=== PATIENT | male | born 1945 | race Caucasian/White ===

== ENCOUNTER → 2017-07-04 11:49 | Outpatient (CLI) | payer MEDICARE, SELFPAY ==
[2017-07-04 12:58] LABS: AST(SGOT) 25 U/L (15-37); Alanine Aminotransfer ALT/SGPT 23 U/L (16-61); Albumin, Serum 3.9 g/dL (3.2-5.0); Alkaline Phosphatase 89 U/L (45-117); Bilirubin, Direct 0.22 mg/dL (0.00-0.30); Cholesterol 135 mg/dL (200); Globulin 3.7 g/dL (2.2-4.2); High Density Lipoprotein 59 mg/dL; Protein, Total 7.6 g/dL (6.4-8.2); Triglycerides 69 mg/dL; Very Low Density Lipoprotein 14 mg/dL (5-40)
== END ==
PROVIDERS: Family Provider Family Medicine; PCP Family Medicine; Visit Provider Internal Medicine Cardiovascular Disease
DX: E78.5 Hyperlipidemia, unspecified (principal); Z79.899 Other long term (current) drug therapy
CPT/HCPCS: 36415; 80061; 80076

== ENCOUNTER → 2018-04-16 15:12 | Outpatient (CLI) | payer MEDICARE, SELFPAY ==
[2018-04-16 13:50] VITALS: BMI 33.8
[2018-04-16 16:24] LABS: Absolute Lymphocyte Count 1.36 X10^3/ul (0.83-4.51); Absolute Neutrophil Count 3.9 X10^3/uL (2.0-7.7); Basophil# 0.01 X10^3/uL; Basophil% 0.2 % (0-1); Eosinophil# 0.07 X10^3/uL; Eosinophils% 1.2 % (0-5); Hematocrit 43.9 % (40-54); Hemoglobin 14.6 g/dl (13.0-16.5); Lymphocyte # 1.36 X10^3/ul (4.0); Lymphocyte % 23.5 % (19-41); Mean Corp Hgb Conc 33.3 g/gl (32-36); Mean Corpuscular Hgb 30.7 pg (27.0-32.0); Mean Corpuscular Volume 92.2 fL (80-94); Mean Platelet Vol. 10.5 fl (6.2-12.0); Monocyte# 0.43 X10^3/uL; Monocyte% 7.4 % (0-10); Neutrophil # 3.91 X10^3/uL (2.7-7.7); Neutrophil % 67.5 % (47-70); Platelet Count 145 K/mm3 (150-450); RBC Distribution Width CV 13.2 % (11.6-14.6); RBC Distribution Width SD 43.6 fl (35.1-43.9); Red Blood Count 4.76 M/mm3 (4.6-6.2); White Blood Count 5.8 K/mm3 (4.4-11.0)
[2018-04-16 16:30] LABS: POSITIVE COUNT NO; POSITIVE DIFFERENTIAL NO; POSITIVE MORPHOLOGY NO
[2018-04-16 16:54] LABS: Anion Gap 10 (5-15); BUN 21 mg/dL (7-18); BUN/Creat Ratio 17.5 RATIO (10-20); Calcium,Total 9.2 mg/dL (8.5-10.1); Chloride 110 mmol/L (98-107); EST Glomerular Filtration Rate 64 mL/min (>60); Est Glom Filt Rate - Afr Amer 77 mL/min (>60); Glucose 109 mg/dL (74-106); Magnesium 2.2 mg/dL (1.6-2.6); Sodium Level 146 mmol/L (136-145); Thyroid Stim Hormone (TSH) 1.77 uIU/mL (0.358-3.74)
== END ==
PROVIDERS: Family Provider Family Medicine; PCP Family Medicine; Referring Provider Physician Assistant Medical; Visit Provider Physician Assistant Medical
DX: I25.10 Atherosclerotic heart disease of native coronary artery without angina pectoris (principal); I42.0 Dilated cardiomyopathy; I10 Essential (primary) hypertension; E78.00 Pure hypercholesterolemia, unspecified; G47.33 Obstructive sleep apnea (adult) (pediatric); I48.91 Unspecified atrial fibrillation
CPT/HCPCS: 36415; 80048; 83735; 84443; 85025

== ENCOUNTER → 2018-04-27 06:10 | Outpatient (CLI) | payer MEDICARE, SELFPAY ==
[2018-04-16 13:50] VITALS: BMI 33.8
--- NOTE | 2018-04-27 06:22 | ECHOD_ITS ---
Reason For Study: Afib, Aflutter Procedure This was a 2D Doppler, Color Flow transthoracic echocardiogram. The exam was of adequate technical quality. Exam performed in department. Left Ventricle Normal LV size. Mild concentric left ventricular hypertrophy. Left ventricular systolic function is normal. The estimated ejection fraction is 60 %. Unable to assess diastolic dysfunction. No regional wall motion abnormalities noted. Right Ventricle Normal RV size. Normal systolic function. Atria The left atrium is moderately enlarged. The right atrium is mildly enlarged. No doppler evidence for ASD. Mitral Valve There is mild mitral annular calcification. Normal mitral valve. Moderate (2+) mitral valve insufficiency. Tricuspid Valve Normal tricuspid valve. Mild tricuspid valve insufficiency. Right ventricular systolic pressure estimated to be 45 mmHg. Aortic Valve Trisinus/trileaflet aortic valve. Mild focal aortic valve thickening. Moderate focal aortic valve calcification. Mild aortic stenosis. Trivial aortic valve insufficiency. Pulmonic Valve The pulmonic valve is not well visualized. Moderate (2+) eccentric pulmonic valve insufficiency. Great Vessels Normal sized aortic root. Pericardium/Pleural No pericardial effusion. MMode/2D Measurements & Calculations LVIDd: 4.5 cm IVSd: 1.5 cm LVOT diam: 2.2 cm LVIDs: 3.1 cm LVPWd: 1.4 cm LVOT area: 3.7 cm2 RVDd: 4.2 cm FS: 30.7 % Ao root diam: 3.9 cm LAV(MOD-bp): 93.0 ml LVAd ap4: 32.0 cm2 LAV(MOD-bp) Indexed: 44.5 ml/m2 EDV(MOD-sp4): 101.4 ml LAV(MOD-sp2): 101.3 ml EDV(sp4-el): 105.8 ml LAV(MOD-sp4): 81.9 ml LVAs ap4: 17.8 cm2 ESV(MOD-sp4): 38.4 ml ESV(sp4-el): 38.4 ml EF(MOD-sp4): 62.1 % EF(sp4-el): 63.7 % SV(MOD-sp4): 63.0 ml SV(sp4-el): 67.4 ml LA A4 area: 27.2 cm2 LA dimension(2D): 5.1 cm RA A4 area: 25.8 cm2 Doppler Measurements & Calculations MV E max helga: 107.2 cm/sec Ao V2 max: 206.8 cm/sec LV V1 max: 93.8 cm/sec Ao max P.1 mmHg LV V1 max P.5 mmHg Ao V2 mean: 142.2 cm/sec LV V1 mean P.0 mmHg Ao mean P.0 mmHg LV V1 mean: 67.4 cm/sec Ao V2 VTI: 44.4 cm LV V1 VTI: 20.7 cm KENNA(I,D): 1.7 cm2 KENNA(V,D): 1.7 cm2 SV(LVOT): 77.1 ml PA V2 max: 74.9 cm/sec PI end-d helga: 153.0 cm/sec TR max helga: 324.1 cm/sec TR max P.0 mmHg Interpretation Summary Left ventricular systolic function is normal. The estimated ejection fraction is 60 %. Mild concentric left ventricular hypertrophy. The left atrium is moderately enlarged. The right atrium is mildly enlarged. There is mild mitral annular calcification. Moderate (2+) mitral valve insufficiency. Mild tricuspid valve insufficiency. Mild aortic stenosis. Trivial aortic valve insufficiency. Moderate (2+) eccentric pulmonic valve insufficiency. Right ventricular systolic pressure estimated to be 45 mmHg. Unable to assess diastolic dysfunction. Ordering Physician: Katelin Otero Referring Physician: Raul Lr Performed By: Cleopatra Bush RDCS, RVT
--- NOTE | 2018-04-27 18:38 | STRESSREP ---
Stress Test Report Date: 04-27-2018 Procedure: Pharmacologic stress nuclear imaging study Indications: Atrial fibrillation; cardiomyopathy; valvular heart disease Consent: Per the patient Procedure: The patient underwent pharmacologic (Regadenoson) evaluation with a peak heart rate of 94 beats per minute (62% predicted maximal heart rate) and a peak blood pressure of 144/98 mmHg. The baseline ECG demonstrated atrial fibrillation; nonspecific ST segment abnormalities . The peak pharmacologic ECG demonstrated no obvious ECG changes . There were no cardiac dysrhythmias pretest, during pharmacologic infusion, or recovery. There was no complaint of chest discomfort during pharmacologic infusion or recovery. The examination was discontinued secondary to completion of protocol. Impression: 1. Pharmacologic (Regadenoson) evaluation 2. Peak pharmacologic ECG with . 3. There were no cardiac dysrhythmias pretest, during pharmacologic infusion, or recovery. 4. Nuclear images pending Myocardial perfusion imaging study: Technique: The patient was injected with 14.1 millicuries of technetium 99m Cardiolite and subsequently rest SPECT Cardiolite nuclear imaging was obtained in the horizontal long, vertical long, and short axis views. The patient underwent pharmacologic (Regadenoson) evaluation with a peak heart rate of 94 beats per minute (62 % percent predicted maximal heart rate) and a peak blood pressure of 144/98 mmHg. The patient was injected with 40.6 millicuries of technetium 99m Cardiolite and subsequently stress SPECT Cardiolite nuclear imaging was obtained in the horizontal long, vertical long, and short axis views. A gated Cardiolite study at peak stress was obtained. Interpretation: Rest and stress SPECT Cardiolite nuclear imaging status post realignment, normalization, and attenuation correction demonstrate a small area of subtle diminished tracer uptake near the apical segments without significant change between rest and stress appearing compatible with physiologic apical thinning with no myocardial perfusion changes considered diagnostic for associated stress induced myocardial ischemia or previous myocardial injury/infarction . The gated Cardiolite study demonstrates myocardial thickening and inward wall motion. The reported LVEF is 64 %. Impression: 1. Rest and stress SPECT Cardiolite nuclear imaging demonstrate myocardial perfusion changes compatible with physiologic apical thinning with no myocardial perfusion changes considered diagnostic for associated stress induced myocardial ischemia or previous myocardial injury/infarction. . 2. The gated Cardiolite study reports an LVEF of 64 %. This note was generated with [employer] software. It may contain incorrect words, spelling, and punctuation that were not noted in checking the note before signing.
--- NOTE | 2018-04-27 18:43 | STRESSREP_ITS ---
Stress Test Report Date: 04-27-2018 Procedure: Pharmacologic stress nuclear imaging study Indications: Atrial fibrillation; cardiomyopathy; valvular heart disease Consent: Per the patient Procedure: The patient underwent pharmacologic (Regadenoson) evaluation with a peak heart rate of 94 beats per minute (62% predicted maximal heart rate) and a peak bloo d pressure of 144/98 mmHg. The baseline ECG demonstrated atrial fibrillation; nonspecific ST segment abnormalities . The peak pharmacologic ECG demonstrated no obvious ECG changes . There were no cardiac dysrhythmias pretest, during pharmacologic infusion, or recovery. There was no complaint of chest discomfort during pharmacologic infusion or recovery. The examination was discontinued secondary to completion of protocol. Impression: 1. Pharmacologic (Regadenoson) evaluation 2. Peak pharmacologic ECG with . 3. There were no cardiac dysrhythmias pretest, during pharmacologic infusion, or recovery. 4. Nuclear images pending Myocardial perfusion imaging study: Technique: The patient was injected with 14.1 millicuries of technetium 99m Cardiolite and subsequently rest SPECT Cardiolite nuclear imaging was obtained in the horizontal long, vertical long, and short axis views. The patient underwent pharmacologic (Regadenoson) evaluation with a peak heart rate of 94 beats per m inute (62 % percent predicted maximal heart rate) and a peak blood pressure of 144/98 mmHg. The patient was injected with 40.6 millicuries of technetium 99m Cardiolite and subsequently stress SPECT Cardiolite nuclear imaging was obtained in the horizontal long, vertical long, and short axis views. A gated Cardiolite study at peak stress was obtained. Interpretation: Rest and stress SPECT Cardiolite nuclear imaging status post realignment, normalization, and attenuation correction demonstrate a small area of subtle diminished tracer uptake near the apical segments without significant change between rest and stress appearing compatible with physiologic apical thinning with no myocardial perfusion changes considered diagnostic for associated stress induced myocardial ischemia or previous myocardial injury/infarction . The gated Cardiolite study demonstrates myocardial thickening and inward wall motion. The reported LVEF is 64 %. Impression: 1. Rest and stress SPECT Cardiolite nuclear imaging demonstrate myocardial perfusion changes compatible with physiologic apical thinning with no myocardial perfusion changes considered diagnostic for associated stress induced myocardial ischemia or previous myocardial injury/infarction. . 2. The gated Cardiolite study reports an LVEF of 64 %. This note was generated with [employer] software. It may contain incorrect words, spelling, and punctuation that were not noted in checking the note before signing.
== END ==
PROVIDERS: Family Provider Family Medicine; PCP Family Medicine; Referring Provider Physician Assistant Medical; Visit Provider Physician Assistant Medical
DX: I25.10 Atherosclerotic heart disease of native coronary artery without angina pectoris (principal); I48.91 Unspecified atrial fibrillation; I42.0 Dilated cardiomyopathy; I27.20 Pulmonary hypertension, unspecified; E78.5 Hyperlipidemia, unspecified; E78.00 Pure hypercholesterolemia, unspecified; G47.33 Obstructive sleep apnea (adult) (pediatric); I10 Essential (primary) hypertension
CPT/HCPCS: 78452; 93017; 93225; 93226; 93306; A9500; A4216; J2785

== ENCOUNTER 2018-05-29 10:21 | Day surgery (SDC) | payer MEDICARE, SELFPAY ==
[2018-05-01 13:36] VITALS: BMI 33.2
[2018-05-17 14:57] VITALS: BMI 33.3
--- NOTE | 2018-05-17 16:07 | RAD_ITS ---
STUDY: X-RAY CHEST REASON FOR EXAM: Male, 72 years old. Atrial fibrillation. TECHNIQUE: PA and lateral views of the chest. COMPARISON: Frontal chest x-ray included with acute abdomen series December 24, 2013. FINDINGS: The lungs are clear and expanded. There is no demonstrated pleural abnormality. Normal size heart. Normal mediastinum and janae. Normal visualized pulmonary arteries. There is mild atherosclerotic calcification of the aortic arch. There are stable diffuse degenerative changes of the visualized thoracic spine. Normal visualized ribs, clavicles, and shoulders. There is no demonstrated abnormality of the visualized soft tissue structures of the upper abdomen. RAD/Chest PA and Lateral IMPRESSION: No acute cardiopulmonary disease. Electronically Signed: Arnie Su MD at 17:44 EDT , Service support ,
[2018-05-17 17:37] LABS: Anion Gap 6 (5-15); BUN 18 mg/dL (7-18); BUN/Creat Ratio 15.1 RATIO (10-20); Chloride 110 mmol/L (98-107); Creatinine, Serum 1.19 mg/dL (0.70-1.30); EST Glomerular Filtration Rate 64 mL/min (>60); Est Glom Filt Rate - Afr Amer 78 mL/min (>60); Glucose 85 mg/dL (74-106); Sodium Level 146 mmol/L (136-145)
[2018-05-28 09:35] VITALS: BMI 33.3
--- NOTE | 2018-05-29 12:57 | OP.PCM_ITS ---
Problem List (1) Atrial fibrillation Status: Chronic Qualifiers: Atrial fibrillation type: persistent Report of Operation Date of Procedure: 05/29/18 Pre-Operative Diagnosis: Atrial fibrillation Post-Operative Diagnosis: Atrial fibrillation Surgery/Procedure Performed:: Synchronized biphasic DC cardioversion Description of Surgical Findings:: Synchronized biphasic DC cardioversion: 200 J x1: Result: Atrial fibrillation Synchronized biphasic DC cardioversion: 300 J x1: Result: Sinus rhythm Type of Anesthesia:: IV Sedation Anesthesiologist: Saulo Limon Special Medications: Propofol 80 mg IV push total Specimen's removed: None Description of Procedure: Synchronized biphasic DC cardioversion: 200 J x1: Result: Atrial fibrillation Synchronized biphasic DC cardioversion: 300 J x1: Result: Sinus rhythm - Complications None - Admit VTE Documentation VTE Present on Admission: No VTE Mechan Device Prophylaxis: None - The patient is on oral systemic anticoagulant therapy VTE Pharm Prophylaxis ordered?: No Reason prophylaxis not ordered:: Treatment Not Indicated - The patient is on o ral systemic anticoagulant therapy
--- NOTE | 2018-05-29 15:15 | PCM.OP.PRO ---
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 transplanted heart: [place] heart Qualified Code(s): I25.10 - Atherosclerotic heart disease of [place] coronary artery without angina pectoris (2) Atrial fibrillation Status: Chronic Qualifiers: Atrial fibrillation type: persistent (3) Cardiomyopathy Status: Chronic Qualifiers: Cardiomyopathy type: dilated Qualified Code(s): I42.0 - Dilated cardiomyopathy (4) Morbid obesity Status: Chronic (5) Nonrheumatic aortic (valve) stenosis Status: Chronic (6) Nonrheumatic mitral valve regurgitation Status: Chronic (7) GOLDY (obstructive sleep apnea) Status: Chronic (8) Pulmonary hypertension Status: Chronic Procedure Report Date of Procedure: 05/29/18 - Conscious sedation CONSCIOUS SEDATION REPORT BRIEF HISTORY OF PRESENT ILLNESS: The patient is a 72-year-old male who presented to [facility] for an elective outpatient cardioversion due to underlying atrial fibrillation. The patient reports no PO intake since midnight. The patient does have a history of obstructive sleep apnea. The patient reports no history of smoking and COPD. The patient denies any recent constitutional symptoms such as fevers, chills, nausea or vomiting. The patient denies previous anesthetic complications. Patient's last known ejection fraction was 55% and patient is anticoagulated with Eliquis. PHYSICAL EXAMINATION: VITAL SIGNS: Reviewed and were acceptable. GENERAL: The patient is a male, in no apparent distress, speaking in full sentences. HEENT: Normocephalic, atraumatic. Mucous membranes are moist and pink. Good mouth opening noted. Fair dentition. Trachea is midline. Good neck mobility. MP III CHEST: S1, S2 irregularly irregular. No murmurs, rubs or gallops were noted. LUNGS: Clear to auscultation bilaterally without appreciable wheezes, rales or rhonchi. ABDOMEN: Soft, nontender, nondistended. Positive bowel sounds. EXTREMITIES: There is no clubbing, cyanosis or edema. ASA Class: II DESCRIPTION OF PROCEDURE: After confirmation of informed consent, the patient's anesthesia plan was reviewed in detail. Propofol was chosen. Risks and benefits were reviewed and the patient agreed to proceed. At 12:17 PM, the patient was given 40 mg of propofol. The patient required a total of 60 mg of propofol throughout the procedure to achieve appropriate sedation. The patient achieved an appropriate level of sedation and received 2 attempt s synchronized cardioversion, at 200 J and [address] Timmons at the bedside. This was successful in achieving normal sinus rhythm. The patient was monitored until 12:28 PM, at which time the patient reached their baseline mental status and function. The patient tolerated the procedure well. COMPLICATIONS: None ESTIMATED BLOOD LOSS: None RECOMMENDATIONS: Okay to recover in usual fashion. Code Visit 9xxxx: Other Procedure See Report - [id number] - 11 min
--- NOTE | 2018-05-29 15:18 | PRO.PCM_ITS ---
Problem List (1) Atherosclerotic heart disease of [place] coronary artery without angina pectoris Status: Chronic Qualifiers: [place] vs. transplanted heart: [place] heart Qualified Code(s): I25.10 - Atherosclerotic heart disease of [place] coronary artery without angina pectoris (2) Atrial fibrillation Status: Chronic Qualifiers: Atrial fibrillation type: persistent (3) Cardiomyopathy Status: Chronic Qualifiers: Cardiomyopathy type: dilated Qualified Code(s): I42.0 - Dilated cardiomyopathy (4) Morbid obesity Status: Chronic (5) Nonrheumatic aortic (valve) stenosis Status: Chronic (6) Nonrheumatic mitral valve regurgitation Status: Chronic (7) GOLDY (obstructive sleep apnea) Status: Chronic (8) Pulmonary hypertension Status: Chronic Procedure Report Date of Procedure: 05/29/18 - Conscious sedation CONSCIOUS SEDATION REPORT BRIEF HISTORY OF PRESENT ILLNESS: The patient is a 72-year-old male who presented to [facility] for an elective outpatient cardioversion due to underlying atrial fibrillation. The patient reports no PO intake since midnight. The patient does have a history of obstructive sleep apnea. The patient reports no history of smoking and COPD. The patient denies any recent constitutional symptoms such as fevers, chills, nausea or vomiting. The patient denies previous anesthetic complications. Patient's last known ejection fraction was 55% and patient is anticoagulated with Eliquis. PHYSICAL EXAMINATION: VITAL SIGNS: Reviewed and were acceptable. GENERAL: The patient is a male, in no apparent distress, speaking in full sentences. HEENT: Normocephalic, atraumatic. Mucous membranes are moist and pink. Good mouth opening noted. Fair dentition. Trachea is midline. Good neck mobility. MP III CHEST: S1, S2 irregularly irregular. No murmurs, rubs or gallops were noted. LUNGS: Clear to auscultation bilaterally without appreciable wheezes, rales or rhonchi. ABDOMEN: Soft, nontender, nondistended. Positive bowel sounds. EXTREMITIES: There is no clubbing, cyanosis or edema. ASA Class: II DESCRIPTION OF PROCEDURE: After confirmation of informed consent, the patient's anesthesia plan was reviewed in detail. Propofol was chosen. Risks and benefits were reviewed and the patient agreed to proceed. At 12:17 PM, the patient was given 40 mg of propofol. The patient required a total of 60 mg of propofol throughout the procedure to achieve appropriate sedation. The patient achieved an appropriate level of sedation and received 2 attempt s synchronized cardioversion, at 200 J and [address] Timmons at the bedside. This was successful in achieving normal sinus rhythm. The patient was monitored until 12:28 PM, at which time the patient reached their baseline mental status and function. The patient tolerated the procedure well. COMPLICATIONS: None ESTIMATED BLOOD LOSS: None RECOMMENDATIONS: Okay to recover in usual fashion. Code Visit 9xxxx: Other Procedure See Report - [id number] - 11 min
== END 2018-05-29 13:38 | disposition home or self-care (01) ==
LOC: CLSP 10:22
PROVIDERS: Physician Assistant Medical; Family Provider Family Medicine; PCP Family Medicine; Referring Provider Internal Medicine Cardiovascular Disease; Visit Provider Internal Medicine Cardiovascular Disease
DX: I48.1 Persistent atrial fibrillation (principal); Z79.01 Long term (current) use of anticoagulants; I25.10 Atherosclerotic heart disease of native coronary artery without angina pectoris; I42.0 Dilated cardiomyopathy; E66.01 Morbid (severe) obesity due to excess calories; E78.5 Hyperlipidemia, unspecified; I35.0 Nonrheumatic aortic (valve) stenosis; I34.0 Nonrheumatic mitral (valve) insufficiency; G47.33 Obstructive sleep apnea (adult) (pediatric); M10.9 Gout, unspecified; I27.20 Pulmonary hypertension, unspecified; Z68.33 Body mass index [BMI] 33.0-33.9, adult; Z79.82 Long term (current) use of aspirin; Z87.891 Personal history of nicotine dependence
CPT/HCPCS: 36415; 71046; 80048; 92960; 93005; J7040

== ENCOUNTER → 2018-11-23 07:37 | Outpatient (CLI) | payer MEDICARE, SELFPAY ==
[2018-05-28 09:35] VITALS: BMI 33.3
== END ==
PROVIDERS: Family Provider Family Medicine; PCP Family Medicine; Referring Provider Family Medicine; Visit Provider Family Medicine
DX: I25.10 Atherosclerotic heart disease of native coronary artery without angina pectoris (principal); I10 Essential (primary) hypertension; M10.9 Gout, unspecified; Z12.5 Encounter for screening for malignant neoplasm of prostate
CPT/HCPCS: 36415; 80053; 80061; 84153; 84550; 85025; G0103

== ENCOUNTER → 2018-11-23 07:47 | Outpatient (CLI) | payer MEDICARE, SELFPAY ==
[2018-05-28 09:35] VITALS: BMI 33.3
[2018-11-23 13:14] LABS: Absolute Lymphocyte Count 1.38 X10^3/uL (0.83-4.51); Absolute Neutrophil Count 3.2 X10^3/uL (2.0-7.7); Basophil# 0.01 X10^3/uL; Basophil% 0.2 % (0-1); Eosinophil# 0.16 X10^3/uL; Eosinophils% 3.1 % (0-5); Hematocrit 36.4 % (40-54); Hemoglobin 11.8 g/dL (13.0-16.5); Lymphocyte # 1.38 X10^3/ul (4.0); Lymphocyte % 26.9 % (19-41); Mean Corp Hgb Conc 32.4 g/dL (32-36); Mean Corpuscular Hgb 30.9 pg (27.0-32.0); Mean Corpuscular Volume 95.3 fL (80-94); Mean Platelet Vol. 10.5 fl (6.2-12.0); Monocyte% 7.8 % (0-10); NRBC Flagged by Analyzer 0 % (0-5); Neutrophil # 3.17 X10^3/uL (2.7-7.7); Neutrophil % 61.8 % (47-70); Platelet Count 134 K/mm3 (150-450); RBC Distribution Width CV 13.3 % (11.6-14.6); RBC Distribution Width SD 46.5 fl (35.1-43.9); Red Blood Count 3.82 M/mm3 (4.6-6.2); White Blood Count 5.1 K/mm3 (4.4-11.0)
[2018-11-23 13:44] LABS: AST(SGOT) 30 U/L (15-37); Alanine Aminotransfer ALT/SGPT 26 U/L (16-61); Albumin, Serum 3.8 g/dL (3.2-5.0); Alkaline Phosphatase 74 U/L (45-117); Anion Gap 10 (5-15); BUN 25 mg/dL (7-18); BUN/Creat Ratio 21.4 RATIO (10-20); Calcium,Total 8.8 mg/dL (8.5-10.1); Chloride 108 mmol/L (98-107); Cholesterol 146 mg/dL (200); Creatinine, Serum 1.17 mg/dL (0.70-1.30); EST Glomerular Filtration Rate 65 mL/min (>60); Est Glom Filt Rate - Afr Amer 79 mL/min (>60); Globulin 3.8 g/dL (2.2-4.2); Glucose 88 mg/dL (74-106); High Density Lipoprotein 67 mg/dL; PSA,Total - Annual Screen 2.67 ng/mL (0.00-4.00); Potassium 3.8 mmol/L (3.5-5.1); Protein, Total 7.6 g/dL (6.4-8.2); Sodium Level 145 mmol/L (136-145); Triglycerides 61 mg/dL; Very Low Density Lipoprotein 12 mg/dL (5-40)
[2018-12-04 13:55] VITALS: BMI 32.4
== END ==
PROVIDERS: Family Provider Family Medicine; PCP Family Medicine; Referring Provider Family Medicine; Visit Provider Family Medicine
DX: I25.10 Atherosclerotic heart disease of native coronary artery without angina pectoris (principal); I10 Essential (primary) hypertension; M10.9 Gout, unspecified; Z12.5 Encounter for screening for malignant neoplasm of prostate
CPT/HCPCS: 36415; 80053; 80061; 84153; 84550; 85025; G0103

== ENCOUNTER → 2019-02-01 11:22 | Outpatient (CLI) | payer MEDICARE, SELFPAY ==
[2018-05-28 09:35] VITALS: BMI 33.3
[2018-12-04 13:55] VITALS: BMI 32.4
[2019-02-01 11:46] LABS: Absolute Neutrophil Count 2.9 X10^3/uL (2.0-7.7); Basophil# 0.03 X10^3/uL; Basophil% 0.6 % (0-1); Eosinophil# 0.13 X10^3/uL; Eosinophils% 2.7 % (0-5); Hematocrit 39.3 % (40-54); Lymphocyte % 28.7 % (19-41); Mean Corp Hgb Conc 33.1 g/dL (32-36); Mean Corpuscular Hgb 31.5 pg (27.0-32.0); Mean Corpuscular Volume 95.2 fL (80-94); Mean Platelet Vol. 9.8 fl (6.2-12.0); Monocyte# 0.39 X10^3/uL; NRBC Flagged by Analyzer 0 % (0-5); Neutrophil # 2.91 X10^3/uL (2.7-7.7); Neutrophil % 59.8 % (47-70); Platelet Count 129 K/mm3 (150-450); RBC Distribution Width CV 12.8 % (11.6-14.6); RBC Distribution Width SD 44.7 fl (35.1-43.9); Red Blood Count 4.13 M/mm3 (4.6-6.2); White Blood Count 4.9 K/mm3 (4.4-11.0)
[2019-02-01 12:52] LABS: Ferritin 40 ng/mL (26-388); Iron 73 ug/dL (65-175)
[2019-02-01 13:58] LABS: Vitamin B12 696 pg/mL (211-911)
== END ==
PROVIDERS: Family Provider Family Medicine; PCP Family Medicine; Referring Provider Family Medicine; Visit Provider Family Medicine
DX: D53.9 Nutritional anemia, unspecified (principal)
CPT/HCPCS: 36415; 82607; 82728; 82746; 83540; 85025

== ENCOUNTER → 2019-10-24 13:40 | Outpatient (CLI) | payer MEDICARE, SELFPAY ==
[2019-10-03 11:35] VITALS: BMI 33.8
[2019-10-24 15:03] LABS: AST(SGOT) 24 U/L (15-37); Alanine Aminotransfer ALT/SGPT 25 U/L (16-61); Albumin, Serum 3.9 g/dL (3.2-5.0); Alkaline Phosphatase 80 U/L (45-117); Bilirubin, Direct 0.19 mg/dL (0.00-0.30); Cholesterol 147 mg/dL (200); Globulin 3.6 g/dL (2.2-4.2); High Density Lipoprotein 63 mg/dL; Protein, Total 7.5 g/dL (6.4-8.2); Triglycerides 62 mg/dL; Very Low Density Lipoprotein 12 mg/dL (5-40)
== END ==
PROVIDERS: PCP Family Medicine; Referring Provider Internal Medicine Cardiovascular Disease; Visit Provider Internal Medicine Cardiovascular Disease
DX: E78.00 Pure hypercholesterolemia, unspecified (principal); I25.10 Atherosclerotic heart disease of native coronary artery without angina pectoris; I27.20 Pulmonary hypertension, unspecified; I48.0 Paroxysmal atrial fibrillation; I34.0 Nonrheumatic mitral (valve) insufficiency; I35.0 Nonrheumatic aortic (valve) stenosis; I10 Essential (primary) hypertension; G47.33 Obstructive sleep apnea (adult) (pediatric)
CPT/HCPCS: 36415; 80061; 80076

== ENCOUNTER 2020-05-14 10:04 | Outpatient (RCR) | payer MEDICARE, SELFPAY ==
[2019-10-03 11:35] VITALS: BMI 33.8
[2020-05-14] MEDS: COVID-19 VACC, MRNA(PFIZER)/PF 30 MCG/0.3 ML SYRINGE IM (08:00)
[2020-06-04] MEDS: COVID-19 VACC, MRNA(PFIZER)/PF 30 MCG/0.3 ML SYRINGE IM (08:08)
== END 2020-08-11 23:59 ==
LOC: IMMUN 10:04
PROVIDERS: PCP Family Medicine; Visit Provider Family Medicine
DX: Z23 Encounter for immunization (principal)
CPT/HCPCS: 0001A; 0002A; 91300

== ENCOUNTER → 2020-07-13 11:44 | Outpatient (CLI) | payer MEDICARE, SELFPAY ==
[2020-07-08 13:30] VITALS: BMI 33.8
[2020-07-13 14:27] LABS: AST(SGOT) 23 U/L (15-37); Alanine Aminotransfer ALT/SGPT 25 U/L (16-61); Albumin, Serum 3.8 g/dL (3.2-5.0); Alkaline Phosphatase 80 U/L (45-117); Bilirubin, Direct 0.21 mg/dL (0.00-0.30); Cholesterol 137 mg/dL (200); Globulin 3.7 g/dL (2.2-4.2); High Density Lipoprotein 58 mg/dL; Protein, Total 7.5 g/dL (6.4-8.2); Triglycerides 43 mg/dL; Very Low Density Lipoprotein 9 mg/dL (5-40)
== END ==
PROVIDERS: PCP Family Medicine; Referring Provider Internal Medicine Cardiovascular Disease; Visit Provider Internal Medicine Cardiovascular Disease
DX: E78.00 Pure hypercholesterolemia, unspecified (principal); I35.0 Nonrheumatic aortic (valve) stenosis; I42.0 Dilated cardiomyopathy
CPT/HCPCS: 36415; 80061; 80076

== ENCOUNTER → 2020-07-23 13:50 | Outpatient (CLI) | payer MEDICARE, SELFPAY ==
[2020-07-08 13:30] VITALS: BMI 33.8
--- NOTE | 2020-07-23 13:55 | ECHOD_ITS ---
Reason For Study: MURMUR Procedure This was a 2D Doppler, Color Flow transthoracic echocardiogram. The exam was of adequate technical quality. Exam performed in department. Left Ventricle Normal LV size. Left ventricular systolic function is normal. The estimated ejection fraction is 65 %. Diastolic function is indeterminate. No regional wall motion abnormalities noted. Right Ventricle Normal RV size. Normal systolic function. Atria The left atrium is mildly enlarged. Normal right atrium. No doppler evidence for ASD. Mitral Valve There is no mitral annular calcification. Normal mitral valve. Mild (1+) eccentric mitral valve insufficiency. Tricuspid Valve Normal tricuspid valve. Trivial tricuspid valve insufficiency. Right ventricular systolic pressure estimated to be 29 mmHg. Aortic Valve Trisinus/trileaflet aortic valve. Mild focal aortic valve calcification. Mild aortic stenosis. Pulmonic Valve The pulmonic valve is not well visualized. Great Vessels Normal sized aortic root. Calcified aortic root. Pericardium/Pleural No pericardial effusion. MMode/2D Measurements & Calculations LVIDd: 4.4 cm IVSd: 1.3 cm LVOT diam: 2.1 cm LVIDs: 3.2 cm LVPWd: 1.2 cm LVOT area: 3.4 cm2 RVDd: 3.3 cm FS: 28.5 % Ao root diam: 4.1 cm LAV(MOD-bp): 77.3 ml LVAd ap4: 36.1 cm2 LAV(MOD-bp) Indexed: 36.6 ml/m2 LVLd ap4: 9.1 cm LAV(MOD-sp2): 72.3 ml EDV(MOD-sp4): 118.0 ml LAV(MOD-sp4): 76.7 ml EDV(sp4-el): 121.3 ml LVAs ap4: 20.2 cm2 LVLs ap4: 7.2 cm ESV(MOD-sp4): 47.6 ml ESV(sp4-el): 48.3 ml EF(MOD-sp4): 59.6 % EF(sp4-el): 60.2 % SV(MOD-sp4): 70.4 ml SV(sp4-el): 73.0 ml LA A4 area: 25.0 cm2 LA dimension(2D): 4.7 cm RA A4 area: 16.7 cm2 Time Measurements MV dec time: 0.29 sec Doppler Measurements & Calculations MV E max simon: 54.4 cm/sec Lat Peak E' Simon: 6.8 cm/sec Med Peak E' Simon: 6.2 cm/sec MV A max simon: 88.5 cm/sec E/E' lat: 8.0 E/E' med: 8.8 MV E/A: 0.61 Ao V2 max: 201.7 cm/sec LV V1 max: 88.4 cm/sec SV(LVOT): 74.9 ml Ao max P.3 mmHg LV V1 max P.1 mmHg Ao V2 mean: 146.4 cm/sec LV V1 mean P.0 mmHg Ao mean P.5 mmHg LV V1 mean: 67.2 cm/sec Ao V2 VTI: 47.1 cm LV V1 VTI: 22.1 cm KENNA(I,D): 1.6 cm2 KENNA(V,D): 1.5 cm2 PA V2 max: 108.9 cm/sec PI end-d simon: 113.6 cm/sec TR max simon: 253.1 cm/sec TR max P.6 mmHg ECHO/Echo Complete Interpretation Summary Left ventricular systolic function is normal. The estimated ejection fraction is 65 %. The left atrium is mildly enlarged. Mild (1+) eccentric mitral valve insufficiency. Trivial tricuspid valve insufficiency. Mild aortic stenosis. Calcified aortic root. Right ventricular systolic pressure estimated to be 29 mmHg. Diastolic function is indeterminate. Ordering Physician: Jaya Timmons Referring Physician: GUY OZUNA Performed By: Luna Villafana, RDCS, RVT
== END ==
PROVIDERS: PCP Family Medicine; Referring Provider Internal Medicine Cardiovascular Disease; Visit Provider Internal Medicine Cardiovascular Disease
DX: I25.10 Atherosclerotic heart disease of native coronary artery without angina pectoris (principal); I42.0 Dilated cardiomyopathy; I35.0 Nonrheumatic aortic (valve) stenosis; R01.1 Cardiac murmur, unspecified
CPT/HCPCS: 93306

== ENCOUNTER → 2020-11-10 11:00 | Outpatient (CLI) | payer MEDICARE, SELFPAY | PROVIDERS: PCP Family Medicine; Visit Provider Nurse Practitioner Acute Care | DX: G47.33 Obstructive sleep apnea (adult) (pediatric) (principal) | CPT/HCPCS: 98960; G0463 ==

== ENCOUNTER 2021-04-16 11:39 | Outpatient (CLI) | payer MEDICARE, SELFPAY ==
[2021-04-16 15:14] LABS: AST(SGOT) 25 U/L (15-37); Alanine Aminotransfer ALT/SGPT 28 U/L (16-61); Albumin, Serum 3.7 g/dL (3.2-5.0); Alkaline Phosphatase 87 U/L (45-117); Cholesterol 127 mg/dL (200); Globulin 3.6 g/dL (2.2-4.2); High Density Lipoprotein 51 mg/dL; Protein, Total 7.3 g/dL (6.4-8.2); Triglycerides 42 mg/dL; Very Low Density Lipoprotein 8 mg/dL (5-40)
== END 2021-04-16 23:59 | disposition home or self-care (01) ==
PROVIDERS: PCP Family Medicine; Referring Provider Internal Medicine Cardiovascular Disease; Visit Provider Internal Medicine Cardiovascular Disease
DX: E78.00 Pure hypercholesterolemia, unspecified (principal)
CPT/HCPCS: 36415; 80061; 80076

== ENCOUNTER → 2022-01-11 | Outpatient (CLI) | payer MEDICARE, SELFPAY ==
[2022-01-11 17:55] LABS: Absolute Lymphocyte Count 1.53 X10^3/uL (0.83-4.51); Absolute Neutrophil Count 2.8 X10^3/uL (2.0-7.7); Basophil# 0.02 X10^3/uL; Basophil% 0.4 % (0-1); Eosinophil# 0.14 X10^3/uL; Eosinophils% 2.9 % (0-5); Hematocrit 41.9 % (40-54); Lymphocyte # 1.53 X10^3/ul (0.83-4.51); Lymphocyte % 31.5 % (19-41); Mean Corp Hgb Conc 33.4 g/dL (32-36); Mean Corpuscular Volume 95.7 fL (80-94); Mean Platelet Vol. 10.8 fl (6.2-12.0); Monocyte# 0.39 X10^3/uL; NRBC Flagged by Analyzer 0 % (0-5); Neutrophil # 2.77 X10^3/uL (2.7-7.7); Platelet Count 130 K/mm3 (150-450); RBC Distribution Width CV 13.4 % (11.6-14.6); RBC Distribution Width SD 46.9 fl (35.1-43.9); Red Blood Count 4.38 M/mm3 (4.6-6.2); White Blood Count 4.9 K/mm3 (4.4-11.0)
[2022-01-11 18:29] LABS: Anion Gap 7 (5-15); BUN 23 mg/dL (7-18); BUN/Creat Ratio 17.8 RATIO (10-20); Calcium,Total 9.3 mg/dL (8.5-10.1); Chloride 109 mmol/L (98-107); Creatinine, Serum 1.29 mg/dL (0.70-1.30); EST Glomerular Filtration Rate 58 mL/min (>60); Est Glom Filt Rate - Afr Amer 70 mL/min (>60); Glucose 94 mg/dL (74-106); PSA,Total - Annual Screen 3.55 ng/mL (0.00-4.00); Sodium Level 143 mmol/L (136-145); Uric Acid 7.9 mg/dL (3.5-7.2)
== END | disposition home or self-care (01) ==
LOC: BFHLAB 14:41
PROVIDERS: PCP Family Medicine; Visit Provider Family Medicine
DX: I10 Essential (primary) hypertension (principal); M10.9 Gout, unspecified; Z12.5 Encounter for screening for malignant neoplasm of prostate
CPT/HCPCS: 36415; 80048; 84153; 84550; 85025; G0103

== ENCOUNTER → 2022-02-15 | Outpatient (CLI) | payer MEDICARE, SELFPAY | END | disposition home or self-care (01) | LOC: PSN 11:53 | PROVIDERS: PCP Family Medicine; Visit Provider Internal Medicine Cardiovascular Disease | DX: I48.19 Other persistent atrial fibrillation (principal) | CPT/HCPCS: 93225; 93226 ==

== ENCOUNTER → 2022-02-16 | Outpatient (CLI) | payer MEDICARE, SELFPAY ==
--- NOTE | 2022-02-16 13:00 | ECHOD_ITS ---
Reason For Study: Afib, Aflutter Procedure This was a 2D Doppler, Color Flow transthoracic echocardiogram. The exam was of adequate technical quality. Exam performed in department. Left Ventricle Normal LV size. Apical false tendon noted. Left ventricular systolic function is normal. The estimated ejection fraction is 60 %. Diastolic function is indeterminate. No regional wall motion abnormalities noted. Right Ventricle Normal RV size. Normal systolic function. Atria The left atrium is moderately enlarged. The right atrium is moderately enlarged. No doppler evidence for ASD. Mitral Valve There is no mitral annular calcification. Normal mitral valve. Moderate (2+) eccentric mitral valve insufficiency. Tricuspid Valve Normal tricuspid valve. Moderate (2+) eccentric tricuspid valve insufficiency. Right ventricular systolic pressure estimated to be 44 mmHg. Aortic Valve Trisinus/trileaflet aortic valve. Mild diffuse aortic valve calcification. Aortic valve sclerosis / mild aortic valve stenosis. Trivial aortic valve insufficiency. Pulmonic Valve The pulmonic valve is not well visualized. Mild (1+) pulmonic valve insufficiency. Great Vessels Normal sized aortic root. Pericardium/Pleural No pericardial effusion. Epicardial fat. MMode/2D Measurements & Calculations LVIDd: 5.5 cm IVSd: 1.3 cm LVOT diam: 2.1 cm LVIDs: 4.0 cm LVPWd: 1.2 cm LVOT area: 3.3 cm2 RVDd: 4.2 cm FS: 26.9 % Ao root diam: 3.8 cm LAV(MOD-bp): 110.8 ml LVAd ap4: 31.8 cm2 ACS: 1.3 cm LAV(MOD-bp) Indexed: 52.3 ml/m2 LVLd ap4: 8.2 cm LAV(MOD-sp2): 102.4 ml EDV(MOD-sp4): 101.8 ml LAV(MOD-sp4): 103.2 ml EDV(sp4-el): 104.5 ml LVAs ap4: 19.3 cm2 LVLs ap4: 7.1 cm ESV(MOD-sp4): 45.5 ml ESV(sp4-el): 44.9 ml EF(MOD-sp4): 55.3 % EF(sp4-el): 57.0 % SV(MOD-sp4): 56.3 ml SV(sp4-el): 59.6 ml LA A4 area: 30.3 cm2 LA dimension(2D): 5.2 cm RA A4 area: 24.8 cm2 Doppler Measurements & Calculations MV E max helga: 90.1 cm/sec Ao V2 max: 179.3 cm/sec LV V1 max: 128.6 cm/sec Ao max P.9 mmHg LV V1 max P.7 mmHg Ao V2 mean: 131.3 cm/sec LV V1 mean P.7 mmHg Ao mean P.5 mmHg LV V1 mean: 91.0 cm/sec Ao V2 VTI: 38.8 cm LV V1 VTI: 26.4 cm AV (velocity ratio): 0.68 KENNA(I,D): 2.2 cm2 KENNA(V,D): 2.4 cm2 SV(LVOT): 87.1 ml PA V2 max: 70.6 cm/sec PI end-d helga: 135.2 cm/sec TR max helga: 300.0 cm/sec TR max P.0 mmHg ECHO/Echo Complete Interpretation Summary Left ventricular systolic function is normal. The estimated ejection fraction is 60 %. Apical false tendon noted. The left atrium is moderately enlarged. The right atrium is moderately enlarged. Moderate (2+) eccentric mitral valve insufficiency. Moderate (2+) eccentric tricuspid valve insufficiency. Trivial aortic valve insufficiency. Aortic valve sclerosis / mild aortic valve stenosis. Mild (1+) pulmonic valve insufficiency. Epicardial fat. Right ventricular systolic pressure estimated to be 44 mmHg. Diastolic function is indeterminate. Ordering Physician: Jaya Timmons Referring Physician: Raul Lr Performed By: Cleopatra Bush, CHIC[place], RVT
== END | disposition home or self-care (01) ==
PROVIDERS: PCP Family Medicine; Visit Provider Internal Medicine Cardiovascular Disease
DX: I25.10 Atherosclerotic heart disease of native coronary artery without angina pectoris (principal); I42.0 Dilated cardiomyopathy; I27.20 Pulmonary hypertension, unspecified; I48.0 Paroxysmal atrial fibrillation; E78.00 Pure hypercholesterolemia, unspecified; I10 Essential (primary) hypertension; G47.33 Obstructive sleep apnea (adult) (pediatric); I35.0 Nonrheumatic aortic (valve) stenosis; I34.0 Nonrheumatic mitral (valve) insufficiency
CPT/HCPCS: 93306

== ENCOUNTER 2022-03-08 10:48 | Day surgery (SDC) | payer MEDICARE, SELFPAY ==
--- NOTE | 2022-02-24 10:41 | RAD_ITS ---
STUDY: X-RAY CHEST REASON FOR EXAM: Male, 76 years old. Atrial Fibrillation/ Pre Procedure TECHNIQUE: XR Chest 2 Views COMPARISON: 3 FINDINGS: There is atherosclerotic calcification of the aortic arch with tortuosity. There are diffuse degenerative changes of the visualized thoracic spine. There is degenerative osteoarthritis of the bilateral shoulders. There is no demonstrated pleural abnormality. Normal size heart. Normal mediastinum and janae. Normal visualized pulmonary arteries. There is no demonstrated abnormality of the visualized soft tissue structures of the upper abdomen. RAD/Chest PA and Lateral IMPRESSION: There are no acute findings. Electronically Signed: Wan Kennedy MD at 16:49 EST ,
[2022-02-24 11:46] LABS: Anion Gap 1 (5-15); BUN 24 mg/dL (7-18); BUN/Creat Ratio 20.2 RATIO (10-20); Calcium,Total 9.3 mg/dL (8.5-10.1); Chloride 110 mmol/L (98-107); Creatinine, Serum 1.19 mg/dL (0.70-1.30); EST Glomerular Filtration Rate 63 mL/min (>60); Est Glom Filt Rate - Afr Amer 77 mL/min (>60); Glucose 112 mg/dL (74-106); Potassium 4.5 mmol/L (3.5-5.1); Sodium Level 141 mmol/L (136-145)
[2022-03-04 06:54] VITALS: BMI 32.8
--- NOTE | 2022-03-05 15:15 | HP.PCM_ITS ---
History and Physical Date of Admission: 03/08/22 [facility] [address] [place], [place] [address] OFFICE VISIT Date of Service:? 02/09/22 MR#: [id number] Acct: [id number] Name:BENSON MICHAELS Rep #: [id number] : 1945 Provider: Dr. Jaya Timmons MD Age/Sex:? 76/M Location: [facility] Status: Signed HPI HPI History of Present Illness Details: This is a 76-year-old white male who presents today for outpatient c ardiovascular follow-up of his history of a non-CAD related cardiomyopathy, OIA-efa-rptviyvwcljzgraf significant, aortic valve stenosis, mitral valve regurgitation, paroxysmal atrial fibrillation, hyperlipidemia, hypertension, GOLDY, and pulmonary hypertension. The patient denies symptoms considered classic for angina pectoris, CHF / pulmonary edema (with respect to orthopnea / PND), ongoing palpitations, or near syncope / syncope. The patient denies ongoing peripheral pitting edema. He believes overall has been doing well.? He continues to remain physically active with his bicycle and his workout routines. On examination he was found to have an irregular rhythm.? An ECG was performed.? He was noted to be in atrial fibrillation with a controlled ventricular response with an occasional PVC. He has undergone previous cardiovascular studies before.? They are noted below. Intake Vital Signs ? 01/21/2113:26 02/09/2213:05 02/09/2213:07 Height 5 ft 7 in 5 ft 8 in 5 ft 8 in Weight: ? ? 216 lb 2 oz BMI ? ? 32.8 BP ? ? 142/88 H Blood Pressure Location ? ? Lt brachial Position ? ? Sitting Respiration ? ? 16 Pulse ? ? 84 Pulse Source ? ? Auscultation Intake Visit Reasons:?6 M FU [employer] Required: No Accompanied by: Self Allergies No Known Allergies Allergy (Verified 02/09/22 13:07) Medications aspirin 81 mg tablet,delayed release 81 mg PO DAILY@0800 #90 tabs 12/21/17 [Rx Confirmed 02/09/22] allopurinol 100 mg tablet 100 mg PO DAILY 12/04/18 [History Confirmed 02/09/22] atorvastatin 80 mg tablet 80 mg PO QHS #90 tabs 05/04/21 [Rx Confirmed 02/09/22] carvedilol 12.5 mg tablet 12.5 mg PO BID #180 tabs 05/04/21 [Rx Confirmed 02/09/22] ramipril 10 mg capsule 10 mg PO BID 08/16/21 [History Confirmed 02/09/22] furosemide 40 mg tablet 20 mg PO DAILY #45 tabs 08/27/21 [Rx Confirmed 02/09/22] isosorbide mononitrate 30 mg tablet,extended release 24 hr 30 mg PO DAILY 90 days #90 tabs 10/11/21 [Rx Confirmed 02/09/22] apixaban 5 mg tablet (Eliquis) 5 mg PO BID #180 tabs 11/04/21 [Rx Confirmed 02/09/22] potassium chloride 20 mEq tablet,extended release(part/cryst) 20 meq PO BID #180 tabs 11/04/21 [Rx Confirmed 02/09/22] PFSH Medical History? Atherosclerotic heart disease of [place] coronary artery without angina pectoris Atrial fibrillation Cardiomyopathy Dilated cardiomyopathy Essential hypertension Gout History of alcohol abuse Hyperlipidemia Hypertension Morbid obesity Nonrheumatic aortic (valve) stenosis Nonrheumatic mitral valve regurgitation GOLDY (obstructive sleep apnea) GOLDY (obstructive sleep apnea) Paroxysmal atrial fibrillation Pulmonary hypertension Pure hypercholesterolemia Surgical History? History of tonsillectomy Family History? Father?? Myocardial infarctionBrother?? Myocardial infarction Social History? Smoking Status:? Former smoker how long ago did patient quit smoking:? 40 years ago alcohol intake:? current alcohol intake frequency: a few times a week details:? HX alcohol abuse substance use type:? does not use caffeine:? No ROS Const Const: Negative for fatigue, weakness, body ache, fever(s), headache(s), chills, frequent falls, night sweats, daytime sleepiness, difficulty sleeping, excessive sweating, weight gain, weight loss, increased appetite, poor appetite, anorexia or other Eyes Eyes: Negative for blurry vision or double vision ENT ENT: Negative for headache(s), dizziness or balance problems Cardio Chest Pain: No Palpitations: No Edema: None Muscle aches with walking: None Resp Respiratory: Positive for other (wears CPAP at night); Negative for SOB with activity, SOB at rest, SOB orthopnea\SOB lying down, Cough, Coughing up blood/hemoptysis, chest congestion, pain on inspiration, snoring, stridor, wheezing, crackles or paroxysmal nocturnal dyspnea Musc Musc: Negative for muscle aches/ myalgia, muscle weakness, joint pain or balance problems Neuro Neuro: Negative for dizziness, lightheadedness, near syncope, syncope, orthostat ic symptoms, frequent falls, headache(s), weakness, confusion, memory loss, restless legs, blurry vision, double vision, vertigo, seizures, lack of coordination or other Endo Endo: Negative for fatigue or excessive sweating Cardiology Exam Const Appearance: cooperative, healthy appearing, comfortable, no acute distress, well developed and well groomed Nutritional Appearance: overweight Orientation: alert, awake and oriented x3 Head Head: normal to inspection, normocephalic and atraumatic Ears: hearing grossly normal bilaterally Nose: external nose normal Face and Sinus: face symmetric Eyes Eyelids: eyelids normal Conjunctivae: conjunctivae normal Pupils: PERRL and pupil size EOM: EOM intact bilaterally Neck Neck: normal visual inspection and full ROM Carotids: Negative bruit Chest Chest inspection: normal inspection of the chest, symmetric chest movement and normal respiratory effort Auscultation: Bilateral: Clear to Auscultation Cardio Palpation: normal PMI Rate: regular rate Rhythm: irregularly irregular Heart sounds: S1 normal, S2 normal and murmur; Negative rub or gallop Murmur: Grade 2/6, soft, mid systolic, LLSB, LVOT and sternal notch GI GI: normal to inspection, soft and bowel sounds present Neuro General: patient alert, patient awake, patient oriented x3, gait normal and moves all extremities Skin Skin: no rashes or lesions noted Extremities Pulses: Normal: Right Posterior Tibial Pulse, Left Posterior Tibial Pulse, Right Radial Pulse and Left Radial Pulse Lower Extremity Edema: None: Bilateral Psych Psychological: normal affect Supplemental Info Supplemental Information Echocardiogram in 2019 demonstrated: Left ventricular systolic function is normal. The estimated ejection fraction is 60 %. Mild concentric left ventricular hypertrophy. The left atrium is moderately enlarged. The right atrium is mildly enlarged. There is mild mitral annular calcification. Moderate (2+) mitral valve insufficiency. Mild tricuspid valve insufficiency. Mild aortic stenosis. Trivial aortic valve insufficiency. Moderate (2+) eccentric pulmonic valve insufficiency. Right ventricular systolic pressure estimated to be 45 mmHg. Unable to assess diastolic dysfunction. Echocardiogram from 07/23/2020: Interpretation Summary Left ventricular systolic function is normal. The estimated ejection fraction is 65 %. The left atrium is mildly enlarged. Mild (1+) eccentric mitral valve insufficiency. Trivial tricuspid valve insufficiency. Mild aortic stenosis. Calcified aortic root. Right ventricular systolic pressure estimated to be 29 mmHg. Diastolic function is indeterminate.? Stress test in 2019 demonstrated: Rest and stress SPECT Cardiolite nuclear imaging demonstrate myocardial perfusion changes compatible with physiologic apical thinning with no myocardial perfusion changes considered diagnostic for associated stress induced myocardial ischemia or previous myocardial injury/infarction. The gated Cardiolite study reports an LVEF of 64 %. Holter monitor in 04/2018 demonstrated: Atrial fibrillation; rare PVCs; no wide-complex runs; no symptoms reported.? Labs: ?? ? LDL Cholesterol 68 mg/dL (0-130) ?? ? HDL Cholesterol 51 mg/dL (40-) ?? ? Triglycerides 42 mg/dL (-199) ?? ? VLDL Cholesterol 8 mg/dL (5-40) Diagnostics: ?? ? Electrocardiogram ? Echocardiogram ? Stress Test NM ? Stress Test ? Chest X-Ray ? Pulmonary: ?? ? No Data to Display Assessment and Plan Assessment and Plan (1) Paroxysmal atrial fibrillation: ?Status:?Chronic ?Plan: Another setAt the present time he has returned to atrial fibrillation. His ventricular response is controlled. He continues on anticoagulant therapy. He will be asked to have a 24-hour Holter monitor to screen whether or not it appears paroxysmal versus persistent. He will also have an echocardiogram to reassess his atrial size as well as the remainder of his cardiac size and function and physiology. Depending upon his findings consideration will be given as to whether he continues conservative medical management versus is considered for colitis biphasic DC cardioversion versus is considered for additional antiarrhythmic therapy or EP consultation for possible EPS/RFA. (2) Dilated cardiomyopathy: ?Status:?Chronic ?Plan: The patient appears to be doing well at the present time. He will continue his current medical management. He will have a follow-up echocardiogram to monitor his left ventricular wall motion and systolic function. (3) Atherosclerotic heart disease of [place] coronary artery without angina pectoris: ?Status:?Chronic ?Qualifiers: ?[place] vs. transplanted heart:?[place] heart? Qualified Code(s):?I25.10 - Atherosclerotic heart disease of [place] coronary artery without angina pectoris ?Plan: The patient has a history of CAD-nonangiographically significant. He does need to continue risk factor modification medical therapy. (4) Nonrheumatic aortic (valve) stenosis: ?Status:?Chronic ?Plan: The patient has a history of underlying valvular heart disease.? He will be followed by history, exam, and echocardiogram. He will continue evaluation and care as noted. (5) Nonrheumatic mitral valve regurgitation: ?Status:?Chronic ?Plan: The patient will continue follow-up of his MR as noted above. (6) Pure hypercholesterolemia: ?Status:?Chronic ?Plan: A copy of his PCP lipid labs will be appreciated for continuity of care. (7) Essential hypertension: ?Status:?Chronic ?Plan: The patient does check his blood pressure every day at home.? He states his blood pressure has not been elevated as it is in the office today. He will continue to monitor his blood pressure at home.? If his trends are elevating then he may need further adjustment of his antihypertensive regimen. (8) Pulmonary hypertension: ?Status:?Chronic ?Plan: The patient does have history of pulmonary hypertension thought secondary to not only his cardiovascular disease process but also his GOLDY. He will continue evaluation care as deemed appropriate. (9) GOLDY (obstructive sleep apnea): ?Status:?Chronic ?Plan: The patient will continue to follow with pulmonology as deemed appropriate. ? ? ? Orders: Orders 12 Lead EKG performed by [facility] Today I48.0 - Paroxysmal atrial fibrillation ? Cardiac Holter Monitor, 24 Hrs Today E78.00 - Pure hypercholesterolemia, unspecified, G47.33 - Obstructive sleep apnea (adult) (pediatric), I10 - Essential (primary) hypertension, I25.10 - Atherosclerotic heart disease of [place] coronary artery without angina pectoris, I27.20 - Pulmonary hypertension, unspecified, I34.0 - Nonrheumatic mitral (valve) insufficiency, I35.0 - Nonrheumatic aortic (valve) stenosis, I42.0 - Dilated cardiomyopathy, I48.0 - Paroxysmal atrial fibrillation ? Echo Complete Today E78.00 - Pure hypercholesterolemia, unspecified, G47.33 - Obstructive sleep apnea (adult) (pediatric), I10 - Essential (primary) hypertension, I25.10 - Atherosclerotic heart disease of [place] coronary artery without angina pectoris, I27.20 - Pulmonary hypertension, unspecified, I34.0 - Nonrheumatic mitral (valve) insufficiency, I35.0 - Nonrheumatic aortic (valve) stenosis, I42.0 - Dilated cardiomyopathy, I48.0 - Paroxysmal atrial fibrillation ? Plan Details Additional Comments: The above was discussed with the patient.? He was agreeable to this approach. Thank you for allowing me to participate in the care of your patient.? Please don't hesitate to call if any issues arise. This note was generated using a voice recognition system and there may be incorrect words, spelling or punctuation that were not noted when reviewing the office note prior to saving. Follow Up: ? ? 6 Months (PFM ) COVID (Procedure Consent) Procedure Criteria Procedure Criteria: Yes Elective The surgeon/proceduralist and patient have discussed in detail the risk of exposure to and/or potential harm posed by the COVID-19 virus with having a surgery/procedure at this time versus the risk of? delaying the surgery/procedure. It is not possible to know either the risk of delaying the surgery or procedure or chance of getting an infection with perfect accuracy, but a joint decision was made between the patient and the surgeon/proceduralist ?to proceed at this time with the scheduled surgery/procedure as indicated on the consent form. Coding Level of Care Code Off vis,est,level 5 Diagnoses Paroxysmal atrial fibrillation? I48.0 Dilated cardiomyopathy? I42.0 Atherosclerotic heart disease of [place] coronary artery without angina pectoris? I25.10 ? ? ? [place] vs. transplanted heart: [place] heart Nonrheumatic aortic (valve) stenosis? I35.0 Nonrheumatic mitral valve regurgitation? I34.0 Pure hypercholesterolemia? E78.00 Essential hypertension? I10 Pulmonary hypertension? I27.20 GOLDY (obstructive sleep apnea)? G47.33 Coding Level of Care Code Off vis,est,level 5 Diagnoses Paroxysmal atrial fibrillation? I48.0 Dilated cardiomyopathy? I42.0 Atherosclerotic heart disease of [place] coronary artery without angina pectoris? I25.10 ? ? ? [place] vs. transplanted heart: [place] heart Nonrheumatic aortic (valve) stenosis? I35.0 Nonrheumatic mitral valve regurgitation? I34.0 Pure hypercholesterolemia? E78.00 Essential hypertension? I10 Pulmonary hypertension? I27.20 GOLDY (obstructive sleep apnea)? G47.33 02/09/22 1353 <Electronically signed by Jaya Timmons MD> Date Jaya Timmons MD Cosigner Signature: Date (if applicable) CC:? Dr. Raul Lr, DO ~ Assessment & Plan Addt'l Comments Addendum: 03-08-2022 The patient has undergone additional evaluation with the 24-hour Holter monitor. This was performed on 02-15-2022. The Holter monitor demonstrated atrial fibrillation with underlying ventricular ectopy/PVCs. The patient also underwent evaluation with a transthoracic echocardiogram. This was performed on 02-16-2022. The results are noted below. Interpretation Summary Left ventricular systolic function is normal. The estimated ejection fraction is 60 %. Apical false tendon noted. The left atrium is moderately enlarged. The right atrium is moderately enlarged. Moderate (2+) eccentric mitral valve insufficiency. Moderate (2+) eccentric tricuspid valve insufficiency. Trivial aortic valve insufficiency. Aortic valve sclerosis / mild aortic valve stenosis. Mild (1+) pulmonic valve insufficiency. Epicardial fat. Right ventricular systolic pressure estimated to be 44 mmHg. Diastolic function is indeterminate. Based upon the patient's history and his current clinical findings a recommendation was made for the patient to consider an attempt at regaining sinus rhythm, once he has had adequate anticoagulation therapy, with synchronized biphasic DC cardioversion. The procedure and risks were discussed with the patient. He was agreeable to this approach. This note was generated using a voice recognition system and there may be incorrect words, spelling or punctuation that were not noted when reviewing the office note prior to saving.
--- NOTE | 2022-03-08 12:06 | CARDIOVERS ---
Cardioversion Cardioversion: Date: Procedure: Synchronized Biphasic DC Cardioversion Indications: Atrial fibrillation Consent: Per the Patient Anesthesia: per Dr. Limon of pulmonology and critical care medicine with propofol 70 mg IV push total Procedure: Synchronized Biphasic DC Cardioversion: 200 J x 1: Result: Sinus rhythm/sinus bradycardia; occasional PVC Complications: no apparent complications This note was generated with [employer] software. It may contain incorrect words, spelling, and punctuation that were not noted in checking the note before signing.
--- NOTE | 2022-03-08 12:45 | PRO.PCM_ITS ---
Assessment & Plan Assessment/Plan (1) Paroxysmal atrial fibrillation: (2) Dilated cardiomyopathy: (3) GOLDY (obstructive sleep apnea): (4) Pulmonary hypertension: Procedure Report Date of Procedure: 03/08/22 CONSCIOUS SEDATION REPORT BRIEF HISTORY OF PRESENT ILLNESS: The patient is a 76-year-old male who presented to [facility] for an elective outpatient cardioversion due to underlying atrial fibrillation. The patient reports no PO intake since midnight, but is currently therapeutic on anticoagulation. The patient does have a history of obstructive sleep apnea. The patient reports no history of smoking or COPD. The patient denies any recent constitutional symptoms such as fevers, chills, nausea or vomiting. The patient denies previous applicable anesthetic complications. Patient's last known ejection fraction was 65% and is currently anticoagulated on Eliquis PHYSICAL EXAMINATION: VITAL SIGNS: Reviewed and were acceptable. GENERAL: The patient is a male, in no apparent distress, speaking in full sentences. HEENT: Normocephalic, atraumatic. Mucous membranes are moist and pink. Good mouth opening noted. Trachea is midline. Good neck mobility. MP III CHEST: S1, S2 irregularly irregular. No murmurs, rubs or gallops were noted. LUNGS: Clear to auscultation bilaterally without appreciable wheezes, rales or rhonchi. ABDOMEN: Soft, nontender, nondistended. Positive bowel sounds. EXTREMITIES: There is no clubbing, cyanosis or edema. ASA Class: II DESCRIPTION OF PROCEDURE: After confirmation of informed consent, the patient's anesthesia plan was reviewed in detail. Propofol was chosen. Risks and benefits were reviewed and the patient agreed to proceed. At 11:54 AM, the patient was given 40 mg of propofol. The patient required a total of 70 mg of propofol throughout the procedure to achieve appropriate sedation. The patient achieved an appropriate level of sedation and received 1 attempt synchronized cardioversion, at [address] Timmons at the bedside. This was successful in achieving sinus bradycardia with occasional PVC. The patient was monitored until 12:08 PM, at which time the patient reached their baseline mental status and function. The patient tolerated the procedure well. COMPLICATIONS: None ESTIMATED BLOOD LOSS: None RECOMMENDATIONS: Okay to recover in usual fashion. Procedures Pulmonary [id number]: [id number] Con Sedation
== END 2022-03-08 13:10 | disposition home or self-care (01) ==
LOC: CLSP 10:50
PROVIDERS: PCP Family Medicine; Referring Provider Internal Medicine Cardiovascular Disease; Visit Provider Internal Medicine Cardiovascular Disease
DX: I48.0 Paroxysmal atrial fibrillation (principal); I27.20 Pulmonary hypertension, unspecified; I42.0 Dilated cardiomyopathy; Z87.891 Personal history of nicotine dependence; Z79.01 Long term (current) use of anticoagulants; G47.33 Obstructive sleep apnea (adult) (pediatric); E78.00 Pure hypercholesterolemia, unspecified; I10 Essential (primary) hypertension; I49.3 Ventricular premature depolarization; I25.10 Atherosclerotic heart disease of native coronary artery without angina pectoris; I35.0 Nonrheumatic aortic (valve) stenosis; I34.0 Nonrheumatic mitral (valve) insufficiency
CPT/HCPCS: 36415; 71046; 80048; 92960; 93005; J7040

== ENCOUNTER → 2023-02-21 | Outpatient (CLI) | payer MEDICARE, SELFPAY ==
[2023-02-21 13:07] LABS: AST(SGOT) 27 U/L (15-37); Alanine Aminotransfer ALT/SGPT 29 U/L (16-61); Albumin, Serum 3.7 g/dL (3.2-5.0); Alkaline Phosphatase 81 U/L (45-117); Bilirubin, Direct 0.21 mg/dL (0.00-0.30); Cholesterol 125 mg/dL (200); Globulin 3.7 g/dL (2.2-4.2); High Density Lipoprotein 59 mg/dL; Protein, Total 7.4 g/dL (6.4-8.2); Triglycerides 47 mg/dL; Very Low Density Lipoprotein 9 mg/dL (5-40)
== END | disposition home or self-care (01) ==
LOC: LAB 11:38
PROVIDERS: PCP Family Medicine; Referring Provider Nurse Practitioner Gerontology; Visit Provider Nurse Practitioner Gerontology
DX: E78.00 Pure hypercholesterolemia, unspecified (principal)
CPT/HCPCS: 36415; 80061; 80076

== ENCOUNTER → 2024-04-19 | Outpatient (CLI) | payer MEDICARE, SELFPAY ==
[2024-04-19 10:57] LABS: Absolute Neutrophil Count 2.8 X10^3/uL (2.0-7.7); Basophil# 0.02 X10^3/uL; Basophil% 0.4 % (0-1); Eosinophil# 0.13 X10^3/uL; Eosinophils% 2.6 % (0-5); Hematocrit 39.9 % (40-54); Hemoglobin 13.7 g/dL (13.0-16.5); Lymphocyte % 30.5 % (19-41); Mean Corp Hgb Conc 34.3 g/dL (32-36); Mean Corpuscular Hgb 31.8 pg (27.0-32.0); Mean Corpuscular Volume 92.6 fL (80-94); Monocyte# 0.44 X10^3/uL; Monocyte% 8.9 % (0-10); NRBC Flagged by Analyzer 0 % (0-5); Neutrophil # 2.82 X10^3/uL (2.7-7.7); Neutrophil % 57.4 % (47-70); Platelet Count 108 K/mm3 (150-450); RBC Distribution Width CV 13.6 % (11.6-14.6); RBC Distribution Width SD 46.5 fl (35.1-43.9); Red Blood Count 4.31 M/mm3 (4.6-6.2); White Blood Count 4.9 K/mm3 (4.4-11.0)
[2024-04-19 11:16] LABS: AST(SGOT) 40 U/L (15-37); Alanine Aminotransfer ALT/SGPT 45 U/L (16-61); Albumin, Serum 3.5 g/dL (3.2-5.0); Alkaline Phosphatase 86 U/L (45-117); Anion Gap 5 (5-15); BUN 12 mg/dL (7-18); BUN/Creat Ratio 11.1 RATIO (10-20); Calcium,Total 9.1 mg/dL (8.5-10.1); Chloride 110 mmol/L (98-107); Cholesterol 116 mg/dL (200); Creatinine, Serum 1.08 mg/dL (0.70-1.30); EST Glomerular Filtration Rate 71 mL/min (>60); Est Glom Filt Rate - Afr Amer 85 mL/min (>60); Globulin 3.5 g/dL (2.2-4.2); Glucose 104 mg/dL (74-106); High Density Lipoprotein 54 mg/dL; Potassium 4.2 mmol/L (3.5-5.1); Sodium Level 141 mmol/L (136-145); Triglycerides 58 mg/dL; Uric Acid 5.5 mg/dL (3.5-7.2); Very Low Density Lipoprotein 12 mg/dL (5-40)
== END | disposition home or self-care (01) ==
LOC: LAB 10:28
PROVIDERS: PCP Family Medicine; Referring Provider Family Medicine; Visit Provider Family Medicine
DX: I25.10 Atherosclerotic heart disease of native coronary artery without angina pectoris (principal); I10 Essential (primary) hypertension; M10.9 Gout, unspecified
CPT/HCPCS: 36415; 80053; 80061; 84550; 85025

== ENCOUNTER → 2024-04-30 | Outpatient (CLI) | payer MEDICARE, SELFPAY ==
--- NOTE | 2024-04-30 10:18 | US_ITS ---
PROCEDURE: LIVER REASON FOR EXAM: Increased bilirubin. Low platelets. COMPARISON: None FINDINGS: Liver: Mild hepatomegaly. The liver measures 18.8 cm. It is of homogeneous echotexture. Gallbladder: No stones, sludge, wall thickening or tenderness. Common bile duct: Normal measuring 2.7 mm. Pancreas: Visualized portions are sonographically unremarkable. Visualized portions of the right kidney are unremarkable. No right upper quadrant ascites. US/Liver IMPRESSION: Mild hepatomegaly. The liver is of homogeneous echotexture. Reading Location: [id number]
== END | disposition home or self-care (01) ==
LOC: US 10:17
PROVIDERS: PCP Family Medicine; Referring Provider Family Medicine; Visit Provider Family Medicine
DX: E80.6 Other disorders of bilirubin metabolism (principal)
CPT/HCPCS: 76705

== ENCOUNTER → 2025-03-03 | Outpatient (CLI) | payer MEDICARE, SELFPAY ==
[2025-03-03 17:40] LABS: Hematocrit 41.8 % (40-54); Hemoglobin 14.4 g/dL (13.0-16.5); Immature Granulocytes Count 0.010 X10^3/uL (0.0-0.0); Mean Corp Hgb Conc 34.4 g/dL (32-36); Mean Corpuscular Volume 92.3 fL (80-94); Mean Platelet Vol. 10.6 fl (6.2-12.0); NRBC Flagged by Analyzer 0 % (0-5); Platelet Count 130 K/mm3 (150-450); RBC Distribution Width CV 13.4 % (11.6-14.6); RBC Distribution Width SD 46.1 fl (35.1-43.9); Red Blood Count 4.53 M/mm3 (4.6-6.2); White Blood Count 5.6 K/mm3 (4.4-11.0)
[2025-03-03 18:05] LABS: Cholesterol 146 mg/dL (<=200); Low Density Lipoprotein Calc. 77 mg/dL; Triglycerides 53 mg/dL; Uric Acid 7.0 mg/dL (3.5-7.2); Very Low Density Lipoprotein 11 mg/dL (5-40); cholesterol:hdl ratio screen 2.53
[2025-03-03 18:10] LABS: Prothrombin Time (Protime)PT. 16.0 SECONDS (11.7-14.9)
[2025-03-03 19:10] LABS: AST(SGOT) 37 U/L (<=37); Alanine Aminotransfer ALT/SGPT 27 U/L (<=46); Albumin, Serum 4.4 g/dL (3.4-4.8); Alkaline Phosphatase 91 U/L (40-129); BUN 22 mg/dL (4-19); BUN/Creat Ratio 17.6 RATIO (10-20); Calcium,Total 10.0 mg/dL (7.6-11.0); Carbon Dioxide 24.4 mmol/L (20.0-29.0); Globulin 3.2 g/dL (2.2-4.2); Glucose 93 mg/dL (70-99)
[2025-03-03 19:17] LABS: Anion Gap 13 (7-18); Chloride 105 mmol/L (96-106); Potassium 4.0 mmol/L (3.5-5.1)
== END | disposition home or self-care (01) ==
LOC: BFHLAB 14:48
PROVIDERS: PCP Family Medicine; Visit Provider Family Medicine
DX: I10 Essential (primary) hypertension (principal); I25.10 Atherosclerotic heart disease of native coronary artery without angina pectoris; M10.9 Gout, unspecified; R58 Hemorrhage, not elsewhere classified
CPT/HCPCS: 36415; 80053; 80061; 84550; 85025; 85610